=== PATIENT | female | born 1970 | race Caucasian/White ===

== ENCOUNTER → 2022-06-19 15:07 | Outpatient (BNVA) | payer MEDICAID, SELFPAY | PROVIDERS: PCP Nurse Practitioner; Referring Provider Nurse Practitioner; Visit Provider Internal Medicine | DX: K72.90 Hepatic failure, unspecified without coma (principal); K74.60 Unspecified cirrhosis of liver; R18.8 Other ascites; F10.21 Alcohol dependence, in remission; F17.200 Nicotine dependence, unspecified, uncomplicated; Z71.6 Tobacco abuse counseling | CPT/HCPCS: 99202 ==

== ENCOUNTER 2022-07-01 15:11 | Outpatient (REF) | payer MEDICAID, SELFPAY ==
[2022-07-01 15:58] LABS: Hematocrit 36.5 % (37.0-47.0); Hemoglobin 12.2 g/dl (12.0-16.0); Mean Corpuscular HGB Conc 33.4 g/dl (31.0-35.0); Mean Corpuscular Hemoglobin 34.2 pg (27.0-33.0); Mean Corpuscular Volume 102.2 fL (80.0-98.0); Mean Platelet Volume 9.3 fL (9.4-12.3); Red Blood Count 3.57 X10*6/uL (4.20-5.50); Red Cell Distribution Width 13.2 % (11.0-16.0); White Blood Count 8.4 X10*3/uL (4.8-10.8)
[2022-07-01 15:59] LABS: Platelet Count 91 X10*3/uL (160-400)
[2022-07-01 16:05] LABS: INTERNATIONAL NORM RATIO 1.6 (0.9-1.1); Prothrombin Time 18.3 SEC (10.0-13.1)
[2022-07-01 16:23] LABS: Alanine Aminotransferase 34 U/L (0-31); Alkaline Phosphatase 169 U/L (39-117); Anion Gap 17 (12-20); Aspartate Amino Transferase 67 U/L (5-31); Bilirubin Direct 1.2 mg/dL (0.0-0.5); Bilirubin Total 3.2 mg/dL (0.0-1.0); Blood Urea Nitrogen 10 mg/dL (9-16); Calcium 8.6 mg/dL (8.4-10.2); Carbon Dioxide 24 mmol/L (22-29); Chloride 100 mmol/L (96-108); Estimated Glomerular Filt Rate > 60; Glucose Random 88 mg/dL (60-115); Iron 182 mcg/dL (30-160); Potassium 3.5 mmol/L (3.3-5.1); Sodium 137 mmol/L (135-145); Total Iron Binding Capacity < 199 mcg/dL (228-428); Unsaturated Iron Binding < 17 ug/dL
[2022-07-01 16:35] LABS: Creatinine Urine 163.62 mg/dL; Potassium Urine Random 33.7 mmol/L
[2022-07-01 16:42] LABS: Ferritin 311 ng/mL (10-250)
[2022-07-02 07:12] LABS: HBc Num1 0.16 S/CO (0.00-0.79); HBsAGNum1 0.23 S/CO (0.00-0.99); Hepatitis B Core Antibody Nonreactive (Nonreactive); Hepatitis B Surface Antigen Negative (Negative); ~HepC Num1 0.11 S/CO (0.00-0.79); ~Hepatitis B Surface Antibody NONREACTIVE (Nonreactive); ~Hepatitis C Antibody Nonreactive (Nonreactive)
[2022-07-03 05:09] LABS: Hepatitis A Antibody IgG Nonreactive (Nonreactive); ~Hepatitis A Antibody IgG 0.71 S/CO (0.00-0.99)
[2022-07-03 14:56] LABS: Ceruloplasmin 21 mg/dL (18-53); Immunoglobulin G 2186 mg/dL (600-1640)
[2022-07-04 12:26] LABS: Mitochondrial Antibodies NEGATIVE (NEGATIVE)
[2022-07-04 13:02] LABS: Liver Kidney Microsomal Ab <=20.0 U (<=20.0)
[2022-07-04 22:26] LABS: Smooth Muscle Antibody <20 U (<20)
== END 2022-07-01 15:12 | disposition home or self-care (01) ==
LOC: HO.LAB 15:11
PROVIDERS: PCP Nurse Practitioner; Visit Provider Internal Medicine
DX: K72.90 Hepatic failure, unspecified without coma (principal); K74.60 Unspecified cirrhosis of liver
CPT/HCPCS: 80048; 80321; 82247; 82248; 82390; 82728; 82784; 83540; 84075; 84133; 84300; 84450; 84460; 85027; 85610; 86015; 86255; 86256; 86376; 86704; 86706; 86708; 86803; 87340